=== PATIENT | female | born 1995 | race Caucasian/White ===

== ENCOUNTER 2017-02-15 12:46 | Emergency (ER) | payer MEDICAID ==
[~2017-02-15] VITALS: Ht 160 cm; Wt 61.2 kg
[2017-02-15 12:48] VITALS: BP 121/69
[2017-02-15] MEDS ORDERED: PRE-TAB3 PO (13:07)
[2017-02-15] MEDS ORDERED: MACR100C3 PO ×2 (13:46→13:48)
== END 2017-02-15 13:55 | disposition home or self-care (01) ==
LOC: M ED 13:50
DX: O23.41 Unspecified infection of urinary tract in pregnancy, first trimester (principal); Z3A.10 10 weeks gestation of pregnancy; Z91.013 Allergy to seafood; Z87.891 Personal history of nicotine dependence

== ENCOUNTER 2017-02-24 12:46 | Emergency (ER) | payer MEDICAID ==
[~2017-02-24] VITALS: Ht 162.6 cm; Wt 60.8 kg
[~2017-02-24 12:46] MED LIST: MACR100C3 PO; PRE-TAB3 PO
[2017-02-24] MEDS ORDERED: KEFL500C7 PO (14:51)
[2017-02-24 15:50] VITALS: BP 111/58
== END 2017-02-24 15:59 | disposition home or self-care (01) ==
LOC: M ED 14:37
DX: O23.41 Unspecified infection of urinary tract in pregnancy, first trimester (principal); Z91.013 Allergy to seafood; Z3A.10 10 weeks gestation of pregnancy

== ENCOUNTER 2017-04-03 13:46 | Emergency (ER) | payer MEDICAID, OTHER ==
[~2017-04-03] VITALS: Ht 160 cm; Wt 63.3 kg
[~2017-04-03 13:46] MED LIST changes: +KEFL500C17 PO; -MACR100C3 PO; +MACR100C43 PO
[2017-04-03] MEDS ORDERED: NS 1,000 ML IV ONE (15:00)
[2017-04-03 15:41] LABS: BASO % 0.3 % (0.0-1.0); EOS % 0.6 % (0.0-3.0); LARGE UNSTAINED CELL # 0.1 K/mm3 (0.0-0.4); LARGE UNSTAINED CELL % 1.2 % (0.0-4.0); LYMPH # 1.4 K/mm3 (1.5-6.5); LYMPH % 15.4 % (24.0-44.0); MEAN CORPUSCULAR HEMOGLOBIN 32.8 pg (27.0-33.0); MEAN CORPUSCULAR HGB CONC 36.2 g/dl (32.0-36.5); MEAN CORPUSCULAR VOLUME 90.4 fl (80.0-96.0); MONO # 0.3 K/mm3 (0.0-0.8); NEUTROPHILS # 6.5 K/mm3 (1.8-7.7); NEUTROPHILS % 78.4 % (36.0-66.0); PLATELET COUNT, AUTOMATED 163 k/mm3 (150-450); RED CELL DISTRIBUTION WIDTH 13.2 % (11.5-14.5); WHITE BLOOD COUNT 8.2 K/mm3 (4.0-10.0)
[2017-04-03 16:35] LABS: ALBUMIN 3.1 GM/DL (3.2-5.2); ALBUMIN/GLOBULIN RATIO 0.86 (1.00-1.93); ALKALINE PHOSPHATASE 68 U/L (45-117); ALT/SGPT 20 U/L (12-78); ANION GAP 6 MEQ/L (8-16); AST/SGOT 13 U/L (15-37); BILIRUBIN,DIRECT < 0.1 MG/DL (0.0-0.2); BILIRUBIN,TOTAL 0.4 MG/DL (0.2-1.0); BLOOD UREA NITROGEN 12 MG/DL (7-18); CALCIUM LEVEL 8.6 MG/DL (8.5-10.1); CARBON DIOXIDE LEVEL 28 MEQ/L (21-32); CHLORIDE LEVEL 105 MEQ/L (98-107); CREATININE FOR GFR 0.56 MG/DL (0.55-1.02); GLOMERULAR FILTRATION RATE > 60.0 (>60); GLUCOSE, FASTING 59 MG/DL (70-105); POTASSIUM SERUM 3.6 MEQ/L (3.5-5.1); SODIUM LEVEL 139 MEQ/L (136-145); TOTAL PROTEIN 6.7 GM/DL (6.4-8.2)
--- NOTE | 2017-04-03 16:37 | REP ---
Clinical: Abdominal cramping . Comparison: None . Findings: Examination demonstrates a single live intrauterine in cephalic presentation. motion is identified by technologist. Placenta is noted fundally and grade zero without evidence for placenta previa or abruption. Amniotic fluid volume is normal. Cervix measures 3.3 cm in length and appears closed. No evidence for nuchal cord. Gestational age by LMP 16 weeks 0 days with TRACY 09/18/2017 . Gestational age by current measurements 16 weeks 3 days with TRACY 09/15/2017 . FHR equals 131 beats per minute. BPD 3.4 cm 16 weeks 4 days HC 12.2 cm 16 weeks 3 days AC 11.1 cm 17 weeks 0 days FL 2.1 cm 16 weeks 1 day HL 2.0 cm 16 weeks 0 days HC/AC ratio 1.14 Estimated weight 160 grams ( 67th percentile). Anatomical assessment demonstrates normal structures including cranium, choroid plexus, cavum, diaphragm, stomach, cord insertion, and bladder. Impression: Single live intrauterine in cephalic presentation demonstrating appropriate interval growth. No gross abnormalities are identified. Anatomical assessment is incomplete and may warrant reevaluation at 19-20 weeks. Signed by Celso Nieves MD 04/03/2017 04:28 P
[2017-04-03 16:54] VITALS: BP 112/57
== END 2017-04-03 16:55 | disposition home or self-care (01) ==
LOC: M ED 13:46
DX: O26.892 Other specified pregnancy related conditions, second trimester (principal); R10.2 Pelvic and perineal pain; O21.9 Vomiting of pregnancy, unspecified; Z91.013 Allergy to seafood; Z3A.16 16 weeks gestation of pregnancy